=== PATIENT | male | born 1945 | race Caucasian/White ===

== ENCOUNTER → 2018-03-12 | Outpatient (CLI) | payer OTHER, MEDICARE | LOC: ULTRA 07:29 → RAD 11:38 | DX: I10 Essential (primary) hypertension (principal); K44.9 Diaphragmatic hernia without obstruction or gangrene; I65.23 Occlusion and stenosis of bilateral carotid arteries; R13.10 Dysphagia, unspecified; E78.5 Hyperlipidemia, unspecified; K76.0 Fatty (change of) liver, not elsewhere classified; N28.1 Cyst of kidney, acquired; Z86.79 Personal history of other diseases of the circulatory system; Z87.891 Personal history of nicotine dependence; K21.9 Gastro-esophageal reflux disease without esophagitis ==

== ENCOUNTER 2018-05-19 10:31 | Inpatient (IN) | payer OTHER, MEDICARE ==
[~2018-05-19] VITALS: Ht 188 cm; Wt 116.2 kg
[2018-05-19] VITALS (12 sets, daily range): BP systolic 86–118; BP diastolic 58–86
--- NOTE | ~2018-05-19 | EKG ---
[place] [address] [employer] [facility] [place] [address] ELECTROCARDIOGRAM REPORT Name: JOSE A DALAL Room #: 238-P ADM IN M.R.#: [id number] Admission: 05/19/18 Attend Phys: ANA Desir Discharge: Date of : 45 Report #: [id number] THIS REPORT FOR: //name// [facility] Test Date: 2018-05-19 Test Time: 17:21:41 Pat Name: JOSE A DALAL Department: Room: 238 Gender: M Layer Out: JIN : 1945 Requested By: Elkin Cifuentes Order Number: [id number] MD: Andrei Chavez Measurements Intervals [place] Rate: 156 P: [place]: QRS: 29 QRSD: 88 T: -88 QT: 295 QTc: 475 Interpretive Statements Supraventricular tachycardia Nonspecific ST and T wave abnormality No previous ECG available for comparison Electronically Signed On 05-20-2018 8:06:00 CDT by Andrei Chavez [email or web address] <ELECTRONICALLY SIGNED> By: Andrei Chavez MD, FACC 05/20/18 0806 1721 1721 Andrei Chavez MD, FACC /EPI
--- NOTE | ~2018-05-19 | D ---
[facility] [place] [address] DISCHARGE SUMMARY Name: JOSE A DALAL Room #: 206-P [facility] IN M.R.#: [id number] Admission: 05/19/18 Attend Phys: Elkin Cifuentes MD Discharge: 05/25/18 Date of : 45 Report #: [id number] THIS REPORT FOR: //name// CC: Chevy Doyle MD DATE OF SERVICE: 05/25/2018 HOSPITAL COURSE: The patient is admitted with tachycardia, diaphoresis, pallor coughing approximately 2 weeks status post paraesophageal hernia repair at [facility]. The patient was found to have atrial fibrillation with rapid ventricular response and heart rate of 160 beats per minute apically and on chest x-ray, was found to have a moderately large pleural effusion and right lower lobe infiltrate on the same side. He subsequently underwent thoracentesis and this was actually repeated a second time during his hospital stay because of recurrence of fluid. Both times, he produced an benja-colored fluid, the first time 1500 mL, the second time about 1000 mL of fluid removed from his right thorax without complication. The patient felt better. Because of the infiltrates, the patient was started on Zosyn and vancomycin, MRSA tested negative and the patient was eventually converted to oral Augmentin. He tolerated these antibiotics well and felt better with the treatment. He was given nebulizer treatments as well, but these were discontinued when the patient developed significant tachycardia problems with the inhaled beta agonists. At time of discharge, the plan is for the patient to be seen in followup by Pulmonary Medicine in about 6-8 weeks. He will be seen by Cardiology, Dr. Multani, in about a week. I will have him coming to outpatient Radiology to have ultrasound-guided thoracentesis weekly until the fluid clears and if it continues, then consideration will have to be given to pleurodesis. The patient's tachycardia was difficult to treat at first and eventually, he required amiodarone and he was started on a loading dose after intravenous doses at 400 mg twice daily for most of the week. At time of discharge, he is going home on half of that dose and his outpatient management will be further conducted by Dr. Multani. He is unable to take diltiazem because of problems with gingival edema approximately 10-15 years ago. His other rate controlling agent is metoprolol. DISCHARGE MEDICATIONS: As follows: Allopurinol 300 mg daily, Nexium 20 mg [address] [address] DISCHARGE SUMMARY Name: JOSE A DALAL Room #: 206-P DIS IN M.R.#: [id number] Admission: 05/19/18 Attend Phys: Elkin Cifuentes MD Discharge: 05/25/18 Date of : 45 Report #: [id number] mouth daily, simvastatin 40 mg by mouth daily, Augmentin 875 mg by mouth twice daily x 5 days, tamsulosin 0.4 mg by mouth nightly, apixaban 5 mg by mouth twice daily, amiodarone 200 mg by mouth twice daily, metoprolol tartrate 50 mg by mouth twice daily, Robitussin-AC 2 teaspoons by mouth every 4 hours as needed for cough 4 ounces, no refills. The patient has been taken off of the lower dose of metoprolol he was taking at home and off of doxazosin. DISCHARGE DIAGNOSES: As follows: 1. Atrial fibrillation with rapid ventricular response. 2. Right lower lobe pneumonia. 3. Large parapneumonic effusion, exudative, with recurrence. 4. Hypertension. 5. Prostatism. 6. Gastroesophageal reflux disease, status post very recent paraesophageal herniorrhaphy. 7. History of gout. 8. History of hyperlipidemia. 9. Chronic kidney disease, stage 2. I have given the patient information about the medications he will be taking, about the followup visits he will be making with Cardiology and Pulmonary Medicine as well as myself and in the outpatient Radiology Department. He was given information to read about what is pleurodesis, in case it is ultimately used to treat his recurrent pleural effusions. It is worth noting that the patient's pleural fluid was tested extensively and the cytology was negative and the bacteriology was negative and at the time of this discharge, I feel that because of the effusion, it is multifactorial including the apparent pneumonia and the fact of his recent paraesophageal hernia repair and trauma locally to the pleura. 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 <ELECTRONICALLY SIGNED> By: Elkin Cifuentes MD 05/28/18 1042 1015 1115 Elkin Cifuentes MD /nt
--- NOTE | ~2018-05-19 | 2DMMODE ---
[facility] [address] [place] [address] 2 D/M-MODE ECHOCARDIOGRAM Name: JOSE A DALAL Room #: 238-P ADM IN M.R.#: [id number] Admission: 05/19/18 Attend Phys: Lindy Pablo, Discharge: Date of : 45 Date of Service: 05/20/18 1144 Report #: [id number] THIS REPORT FOR: //name// APPROVED REPORT Study performed: 05/20/2018 10:08:24 EXAM: Comprehensive 2D, Doppler, and color-flow Echocardiogram Patient Location: ICU Room #: 238 Status: routine BSA: 2.43 HR: 112 bpm BP: 114/63 mmHg Other Information Study Quality: Technically Difficult Technically limited study due to body habitus, high heart rate. Indications Hypertension/HDD SOB 2D Dimensions RVDd: 32.41 mm IVSd: 13.99 (7-11mm) LVOT Diam: 23.41 (18-24mm) LVDd: 41.24 mm PWd: 14.69 (7-11mm) Ascending Ao: 32.18 (22-36mm) LVDs: 25.71 (25-40mm) Aortic Root: 32.40 mm IVC: 15.00 mm Volumes Left Atrial Volume (Systole) Single Plane 4CH: 39.00 mL Single Plane 2CH: 56.93 mL LA ESV Index: 22.00 mL/m2 Aortic Valve AoV Peak Prasanna.: 0.92 m/s AO Peak Gr.: 3.36 mmHg LVOT Max P.06 mmHg LVOT Max V: 0.71 m/s ASHKAN Vmax: 3.34 cm2 Mitral Valve MV Decel. Time: 166.[address] [facility] [place] [place] [address] 2 D/M-MODE ECHOCARDIOGRAM Name: JOSE A DALAL Room #: 238-P ADM IN ..#: [id number] Admission: 05/19/18 Attend Phys: Lindy Pablo, Discharge: Date of : 45 Date of Service: 05/20/18 1144 Report #: [id number] MV E Max Prasanna.: 0.98 m/s Pulmonary Valve PV Peak Prasanna.: 1.06 m/s PV Peak Gr.: 4.52 mmHg Tricuspid Valve RAP Estimate: 10.00 mmHg Left Ventricle The left ventricle is normal size. Mild to moderate concentric left ventricular hypertrophy. Left ventricular systolic function is mildly decreased. LVEF is 45-50%. This study is not technically sufficient to allow evaluation of the LV diastolic function. Right Ventricle The right ventricle is normal size. Right ventricle is mildly hypokinetic. Atria The left atrium size is normal. The right atrium size is normal. Aortic Valve Aortic valve is mildly calcified. Trace aortic regurgitation. There is no aortic valvular stenosis. Mitral Valve Mild mitral annular calcification. Mild mitral regurgitation. No evidence of mitral valve stenosis. Tricuspid Valve The tricuspid valve is normal in structure. Trace tricuspid regurgitation. Pulmonic Valve Pulmonic valve is not well visualized. Great Vessels The aortic root is normal in size. IVC is normal in size and collapses <50% with inspiration. Pericardium There is no pericardial effusion. <Conclusion> The left ventricle is normal size. [facility] [address] [place] [address] 2 D/M-MODE ECHOCARDIOGRAM Name: JOSE A DALAL Room #: 238-P [facility] IN .R.#: [id number] Admission: 05/19/18 Attend Phys: Lindy Pablo, Discharge: Date of : 45 Date of Service: 05/20/18 1144 Report #: [id number] LVEF is 45-50%. Right ventricle is mildly hypokinetic. Aortic valve is mildly calcified. Trace aortic regurgitation. Mild mitral annular calcification. Mild mitral regurgitation. The tricuspid valve is normal in structure. Trace tricuspid regurgitation. Pulmonic valve is not well visualized. There is no pericardial effusion. <ELECTRONICALLY SIGNED> By: Chevy Multani MD 05/20/18 1144 1144 1144 Chevy Multani MD /INF
--- NOTE | ~2018-05-19 | PATH ---
[facility] [address] [place] [address] PATHOLOGY RPT PROCEDURE Name: JOSE A DALAL Room #: 206-P DIS IN M.R.#: [id number] Admission: 05/19/18 Date of : 45 Discharge: 05/25/18 Report #: [id number] Path Case #: [id number] Note [facility] Accession Number: [id number] TESTS RESULT FLAG UNITS REF RANGE LAB Clinician Provided Cytology Information No. of containers..01 Other (Miscellaneous) Source: PLEURAL FLUID DIAGNOSIS: 02 PLEURAL FLUID NEGATIVE FOR MALIGNANT CELLS. REACTIVE MESOTHELIAL CELLS ARE PRESENT. THIS INTERPRETATION INCLUDES EVALUATION OF A CELL BLOCK. Signed out by: 02 Radha Carter MD, Pathologist NPI- [id number] Performed by: 01 Yeimy Fang, Interpreter ([facility]) Gross description: 01 15ML, RED, CLOUDY /LCS FLAG LEGEND: L-Low Normal,H-High Normal,LL-Alert Low,HH-Alert High <-Panic Low,>-Panic High,A-Abnormal,AA-Critical Abnormal Performed at: [address] [place] [address] Arash Zuluaga MD, [address] [address] Radha Carter MD, Specimen Comment: A duplicate report has been generated due to demographic updates. Performed at: [address], [place], [place] [id number] MD Arash Zuluaga MD Phone: [phone]
--- NOTE | ~2018-05-19 | PATH ---
[facility] [address] [place] [address] PATHOLOGY RPT PROCEDURE Name: JOSE A DALAL Room #: 206-P DIS IN M.R.#: [id number] Admission: 05/19/18 Date of : 45 Discharge: 05/25/18 Report #: [id number] Path Case #: [id number] Note [facility] Accession Number: [id number] TESTS RESULT FLAG UNITS REF RANGE LAB Clinician Provided Cytology Information No. of containers..01 Other (Miscellaneous) Source: PLEURAL DIAGNOSIS: 02 PLEURAL FLUID NEGATIVE FOR MALIGNANT CELLS. MESOTHELIAL CELLS ARE PRESENT. THIS INTERPRETATION INCLUDES EVALUATION OF A CELL BLOCK. Signed out by: Radha Carter MD, Pathologist NPI- [id number] Performed by: Alexey Girard, Biod[employer]el Plant Superintendent ([facility]) Gross description: 01 18ML, RED, CLOUDY /LCS FLAG LEGEND: L-Low Normal,H-High Normal,LL-Alert Low,HH-Alert High <-Panic Low,>-Panic High,A-Abnormal,AA-Critical Abnormal Performed at: [address] [place] [address] Arash Zuluaga MD, [address] [address] Radha Carter MD, Specimen Comment: A courtesy copy of this report has been sent to Specimen Comment: [phone]. Specimen Comment: A duplicate report has been generated due to demographic updates. Performed at: [address], [place], [place] [id number] MD Arash Zuluaga MD Phone: [phone]
--- NOTE | ~2018-05-19 | HC ---
[facility] [place] [address] CONSULTATION Name: JOSE A DALAL Room #: 238-P ADM IN M.R.#: [id number] Admission: 05/19/18 Attend Phys: Elkin Cifuentes MD Discharge: Date of : 45 Report #: [id number] THIS REPORT FOR: //name// CC: Elkin Pablo Pulmonary Consultation REFERRAL PHYSICIAN: Dr. Elkin Cifuentes. REASON FOR REFERRAL: Dyspnea and pleural effusion. HISTORY OF PRESENT ILLNESS: The patient is a 72-year-old white male who was directly admitted due to presumed sepsis. A pulmonary consultation was requested. The patient underwent a surgical repair of his paraesophageal hernia about 2 weeks ago at [facility]. He is doing well following surgery. The patient notes that for the past day or so, he was feeling short of breath. He was seen by Dr. Flores, his surgeon. Chest x-ray showed moderate right-sided pleural effusion. He was admitted. He was also found to be tachycardic. The patient then had a thoracentesis. Pleural fluid appears to be bloody, but not max blood. The patient did improve following his thoracentesis. Otherwise denies any recent febrile illness, chest pain, productive cough, hemoptysis, nausea, vomiting, diarrhea. PAST MEDICAL HISTORY: Notable for hypertension, felt to be severe, on multiple antihypertensive medications, recurrent gout, osteoarthritis, gastroesophageal reflux disease, paraesophageal hernia, aortic dilatation. PAST SURGICAL HISTORY: As mentioned above. ALLERGIES: None to medications. The patient is intolerant to the use of MICKEY INHIBITORS, which cause cough. HOME MEDICATIONS: List reviewed. FAMILY HISTORY: Notable for ruptured abdominal aortic aneurysm in the father who . Mother has COPD. SOCIAL HISTORY: He is . He is a lifetime nonsmoker. Denies any alcohol use. REVIEW OF SYSTEMS: As mentioned above, otherwise 10-point system review negative. [facility] [address] [place] [address] CONSULTATION Name: JOSE A DALAL Room #: 238-P [facility] IN .R.#: [id number] Admission: 05/19/18 Attend Phys: Elkin Cifuentes MD Discharge: Date of : 45 Report #: [id number] PHYSICAL EXAMINATION: GENERAL: He is alert, awake, in mild distress. VITAL SIGNS: Temperature is 98 degrees Fahrenheit, pulse is 110, respiratory rate is 20, blood pressure 100/40 mmHg, saturation 97%. HEENT: Unremarkable. NECK: Supple, no lymphadenopathy or thyromegaly. CHEST: Breath sounds are good on the left side. There are decreased breath sound on the right. CARDIOVASCULAR: Normal S1, S2. No murmurs or gallop. There is no JVD. There is no carotid bruit. Pulses are 2+/4+ bilaterally. ABDOMEN: Soft, nontender, no organomegaly or masses felt. GENITOURINARY: Deferred. RECTAL: Deferred. EXTREMITIES: There is no edema, cyanosis or clubbing. DATA: Chest x-ray shows large right pleural effusion. Procalcitonin levels are less than 0.5. Doppler ultrasound of the lower extremities was negative for DVT. Electrolytes are normal except for creatinine of 1.7. WBC 9900, hemoglobin 13.8, platelets are normal. Arterial blood gas revealed pH 7.45, pCO2 of 33, pO2 66 on room air. IMPRESSION: 1. Large right-sided pleural effusion in this 72-year-old white male. He recently underwent paraesophageal surgery 2 weeks ago. The pleural fluid appears to be old blood. Pleural fluid may be related to surgical procedure or possible infection leading to exudative effusion. We will await pleural fluid studies. 2. Paraesophageal hernia, status post repair 2 weeks ago. 3. Gastroesophageal reflux disease. 4. Hypertension. RECOMMENDATION: We will await pleural fluid studies. Broad spectrum antibiotics. Agree with ruling out veno-thromboembolic disease. CT chest to further examine the right lung field. DVT and GI prophylaxis is recommended. [address] [address] CONSULTATION Name: JOSE A DALAL Room #: 238-P [facility] IN .R.#: [id number] Admission: 05/19/18 Attend Phys: Elkin Cifuentes MD Discharge: Date of : 45 Report #: [id number] Thank you for this consultation. <ELECTRONICALLY SIGNED> By: Akhil Doyle MD 05/21/18 1906 [id number] MD nikhil Olivera
--- NOTE | ~2018-05-19 | H ---
[facility] [place] [address] HISTORY AND PHYSICAL Name: JOSE A DALAL Room #: 238-P ADM IN M.R.#: [id number] Admission: 05/19/18 Attend Phys: ANA Desir Discharge: Date of : 45 Report #: [id number] THIS REPORT FOR: //name// CC: [facility] Elkin Angles Steven Doyle MD DATE OF SERVICE: 05/19/2018 CHIEF COMPLAINT: Shortness of breath. HISTORY OF PRESENT ILLNESS: The patient is a 72-year-old male who was discovered to have had a paraesophageal hernia that required surgical repair and this was performed about 2 weeks ago at [facility] under the care of Dr. Steven Flores. The patient was to had LINX procedure done at the same time, but because of the incidental finding of a gastric diverticulum, which needed to be resected at the time of surgery, the LINX was precluded. The patient has been home about 10 days and has pretty much been in bed the entire time. He could not state a particular moment at which he began feeling ill, but rather just never got better as much as he would like after surgery. He feels short of breath when he exerts himself, and I received a phone call from Dr. Flores's office when he was seen at followup today. At the time it was felt that he might have pneumonia on clinical suspicion. When I saw him later in my office, we reviewed his chest x-ray that revealed a right-sided basilar infiltrate as well as a substantial pleural effusion. Most suspicious on physical exam, his heart rate was 160 beats per minute. I arranged for him to be admitted to a telemetry bed at [facility] for further evaluation and treatment. 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 ALLERGIES: HE HAS NO KNOWN DRUG ALLERGIES, BUT DOES NOT TOLERATE MICKEY INHIBITORS (PERSISTENT COUGH). HE ALSO DID NOT TOLERATE ANGIOTENSIN RECEPTOR KAREY THERAPY AND FOR THAT REASON ONE OF HIS DRUGS IS TEKTURNA. MEDICATIONS: Kfxg-tmt-nhgpzes omeprazole, Tekturna 300 mg by mouth daily, metoprolol 100 mg by mouth daily, doxazosin 8 mg by mouth nightly, simvastatin 80 mg by mouth daily, aspirin 81 mg by mouth daily, allopurinol 300 mg by mouth daily, Colcrys on a p.r.n. basis and up until a few days ago he was using hydrocodone for postop pain. [facility] [address] [place] [address] HISTORY AND PHYSICAL Name: JOSE A DALAL Room #: 238-P ADM IN M.R.#: [id number] Admission: 05/19/18 Attend Phys: ANA Desir Discharge: Date of : 45 Report #: [id number] FAMILY HISTORY: His father of a ruptured abdominal aortic aneurysm. His mother also had an aneurysm, but did not of that. She had COPD from smoking in the remote past and heart disease and stroke, I believe. SOCIAL HISTORY: The patient is to [employer]as[employer]. He is a nonsmoker and does not abuse alcohol or recreational drugs. REVIEW OF SYSTEMS: No headaches, no change in vision or hearing or swallowing. No vomiting, minimal loss of appetite, coarseness of breathing and cough. He is minimally productive of sputum. No chest pain. Abdomen wounds are healing, but small as they are laparoscopic and although constipated, his bowels have begun moving better in the last couple of days. No diarrhea, otherwise. No difficulties with urination or urinary frequency. No recent flare ups of gout. No problems with confusion. 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 PHYSICAL EXAMINATION: VITAL SIGNS: At my office, his temperature was 98.3, his pulse was 160, his respiratory rate was 16 per minute, his blood pressure was 140/90 and his oxygen saturation was 97% on room air. GENERAL: Pleasant male who looks younger than stated age, but clearly has increased pallor and slightly diaphoretic today. No distress at time of exam other than just not feeling well. HEENT: The extraocular muscles are intact. The conjunctivae are slightly pale as is the oropharynx. The oropharynx is moist and pink without lesions or exudates, otherwise. Sinuses nontender. Hearing is grossly normal. NECK: Without adenopathy, thyromegaly, mass or significant bruit. LUNGS: Fairly clear on the left side with clearly greatly diminished breath sounds in the right base about third of the way up (confirmed on chest x-ray). CARDIAC: Reveals a tachycardia that is regular. ABDOMEN: Soft. Bowel sounds are present. Laparoscopic wounds noted x 5. They all appear to be healing normally. There is no evidence of infection or any signs of cellulitis. No significant discharge. EXTREMITIES: Without cyanosis or clubbing. Trace peripheral edema in lower extremities, but peripheral pulses are good and no evidence of gout flareups. MENTAL STATUS: The patient is alert. He is oriented to person, place and time. He has no hallucinations or delusions and merely appears tired and affect is slightly down from his usual ebullient self. The cranial nerves appeared intact. Gait was fairly normal. The deep tendon reflexes were not assessed today. No focal deficits of sensation or motor function on general exam. TESTS: The chest x-ray showed clearly a right basilar infiltrate with a large effusion. Left side appears fairly normal. Mediastinal size is normal. The EKG, I have not seen, but the unofficial report is rapid atrial fibrillation, probable inferior infarct and says lateral leads also involved and this will [facility] [address] [place] [address] HISTORY AND PHYSICAL Name: JOSE A DALAL Room #: 238-P ADM IN .R.#: [id number] Admission: 05/19/18 Attend Phys: ANA Desir Discharge: Date of : 45 Report #: [id number] require further investigation. Coags show a protime with an INR of 1.3, PTT of 26.1, which is normal. INR slightly elevated. CBC shows a white count of 9900. Differential 79.9% segs, 11.1% lymphs, 6.6% monocytes, 1.9% eosinophils, 0.5% basophils and the absolute neutrophil count of 7900. Hemoglobin is just barely low at 13.8 g/dL, hematocrit 41.6, normal red cell indices with rising RDW and platelet count of 372,000. D-dimer was elevated at 3.61, which in the absence of being normal does not help delineate much since he had surgery recently. Chemistry shows sodium 140, potassium 4.9, chloride 105, bicarbonate 29, BUN of 21, creatinine 1.7, anion gap 6, glucose 101 nonfasting, AST of 17, ALT of 25. The total bilirubin is 0.5, calcium is 8.9, total protein 6.3, albumin 2.5 and the estimated GFR is low at 40. Serum procalcitonin was less than 0.05. His NT-proBNP is elevated at 5012, with normal for a man his age being less than 900. Troponin was 0.06, which is barely elevated. Thoracentesis was performed at the request of Dr. Doyle and this revealed 1500 mL of benja-colored pleural fluid that was drained without difficulty or evident complication. The pleural fluid was sent for evaluation. The preliminaries show a red blood cell count was 74,335 and the nucleated cells were 2410, but the rest is pending and cultures have been ordered and obtained. ASSESSMENT AND PLAN: 1. Large right pleural effusion with infiltrate -- differential diagnosis includes infection (pneumonia versus empyema), pulmonary embolism (sedentary lifestyle postoperatively), or simply postoperative bleeding in the pleural space on the right side. The patient also has elevated brain natriuretic peptide and this suggests there may be a component of congestive heart failure going on, especially in light of problem #2. 2. Atrial fibrillation with rapid ventricular response. We need to redo the EKG, but given this finding it is likely that he may have to be transferred to ICU for closer monitoring and starting a Cardizem drip in the setting of a possible pulmonary embolism or pneumonia. I will discuss with the patient and his and make the arrangements this evening. I have already discussed the case at some length with Dr. Doyle and will be getting a Cardiology consult as well. Atrial fibrillation is a new finding for this patient. 3. Approximately 10 days status post paraesophageal hernia repair and gastric diverticulectomy. We will continue on a very restricted diet as per my conversation with Dr. Steven Flores earlier this evening. I welcome Dr. Flores's input throughout the case and will place a formal consult if he would like for followup of this patient. 4. Hypertension. We will continue current medications, but started Coreg instead of the metoprolol for rate and blood pressure control. I will defer to my Cardiovascular colleagues if they feel differently. For now, I would likely put him on an intravenous diltiazem drip to get rate control quickly. He will need full anticoagulation for now. Further considerations regarding a need for electrical cardioversion or not in the future, we will defer to Cardiology. [facility] [address] [place] [address] HISTORY AND PHYSICAL Name: JOSE A DALAL Room #: 238-P ADM IN M.R.#: [id number] Admission: 05/19/18 Attend Phys: ANA Desir Discharge: Date of : 45 Report #: [id number] 5. Gastroesophageal reflux disease. Continue proton pump inhibitor therapy. 6. History of recurrent gout. No evidence of disease at this time. We will continue to monitor and keep him on medications to try and prevent recurrences. 7. Hyperlipidemia. Continue on statin therapy. <ELECTRONICALLY SIGNED> By: Elkin Cifuentes MD 05/19/18 2154 1755 1839 Elkin Cifuentes MD /nt
--- NOTE | ~2018-05-19 | EKG ---
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
[2018-05-19 15:58] LABS: ABSOLUTE NEUTROPHILS 7.9 thou/uL (1.4-8.2); BASOPHILS 0.5 % (0.0-2.0); EOSINOPHILS 1.9 % (0.0-3.0); HEMATOCRIT 41.6 % (42.0-52.0); HEMOGLOBIN 13.8 gm/dL (14.0-18.0); LYMPHOCYTES 11.1 % (24.0-44.0); MCH 30.8 pg (26.0-34.0); MCHC 33.2 g/dL (28.0-37.0); MCV 92.8 fL (80.0-100.0); MONOCYTES 6.6 % (1.0-8.0); PLATELET COUNT 372 thou/uL (150-400); POLYS 79.9 % (36.0-66.0); RBC 4.49 mil/uL (4.50-6.00); RDW 14.9 % (10.5-14.5); WBC 9.9 thou/uL (4.0-11.0)
[2018-05-19 16:01] LABS: APTT 26.1 Seconds (24.5-32.8); INR 1.3; PROTIME 12.9 Seconds (9.3-11.4)
[2018-05-19 16:04] LABS: CALCIUM 8.9 mg/dL (8.5-10.1); CREATININE 1.7 mg/dL (0.7-1.3); POTASSIUM 4.9 mmol/L (3.5-5.1)
[2018-05-19 16:10] LABS: ALBUMIN 2.5 g/dL (3.4-5.0); DIRECT BILIRUBIN 0.2 mg/dL (<0.1-0.3); TOTAL BILIRUBIN 0.5 mg/dL (<0.1-1.0); TOTAL PROTEIN 6.3 g/dL (6.4-8.2)
[2018-05-19 17:11] LABS: CLARITY CLOUDY; COLOR RED; SOURCE RIGHT CHEST; TOTAL VOLUME 50 mL
[2018-05-19 17:28] LABS: BF NUCLEATED CELLS 2410; BF RBC 74335
[2018-05-19 17:46] LABS: BE(vivo) -0.6 mmol/L (-2 to +3); HCO3 22.6 mmol/L (22.0-26.0); PCO2 33.3 mmHg (35.0-45.0); PO2 66.8 mmHg (80.0-100.0); sO2 94.3 % (92.0-98.0)
[2018-05-19 18:17] LABS: BF NEUTROPHILS 7
[2018-05-19 18:18] LABS: BF MACROPHAGE 20
[2018-05-19 19:10] LABS: HEMATOCRIT 41.9 % (42.0-52.0); MCHC 33.3 g/dL (28.0-37.0); RBC 4.5 mil/uL (4.50-6.00); RDW 14.7 % (10.5-14.5); WBC 10.5 thou/uL (4.0-11.0)
[2018-05-19] MEDS ORDERED: KAPSPARGO SPRIN25 MG PO (19:45)
[2018-05-19] MEDS ORDERED: TEKTURNA HCT 31 EACH PO (19:45)
[2018-05-19] MEDS ORDERED: ALLOPURINOL 10100 M1 PO (19:46)
[2018-05-19] MEDS ORDERED: NEXIUM 24HR20 M1 PO (19:47)
[2018-05-19] MEDS ORDERED: NORCO 10-325 T1 EACH PO (19:48)
[2018-05-19] MEDS ORDERED: CARDURA4 MG PO (20:34)
[2018-05-19] MEDS ORDERED: SIMVASTATIN40 MG PO (20:35)
[2018-05-20] VITALS (51 sets, daily range): BP systolic 66–124; BP diastolic 27–74
[2018-05-20 03:56] LABS: CALCIUM 8.2 mg/dL (8.5-10.1); CREATININE 1.4 mg/dL (0.7-1.3); POTASSIUM 4.3 mmol/L (3.5-5.1)
[2018-05-20 04:02] LABS: APTT 31.9 Seconds (24.5-32.8); INR 1.3; PROTIME 12.8 Seconds (9.3-11.4)
[2018-05-20 09:04] LABS: SOURCE THORACENTESIS
[2018-05-20 11:30] LABS: INR 1.4; PROTIME 13.9 Seconds (9.3-11.4)
[2018-05-20 11:35] LABS: APTT > 198.4 Seconds (24.5-32.8)
[2018-05-20 15:08] LABS: BODY FLUID ALBUMIN 1.7 g/dL (()); BODY FLUID AMYLASE 21 U/L (()); BODY FLUID GLUCOSE 97 mg/dL (()); BODY FLUID LDH 249 IU/L (())
[2018-05-21] VITALS (37 sets, daily range): BP systolic 70–113; BP diastolic 27–71
[2018-05-21 04:49] LABS: HEMATOCRIT 36.4 % (42.0-52.0); HEMOGLOBIN 12.2 gm/dL (14.0-18.0); MCH 31.1 pg (26.0-34.0); MCHC 33.4 g/dL (28.0-37.0); RBC 3.92 mil/uL (4.50-6.00); RDW 14.7 % (10.5-14.5); WBC 8.4 thou/uL (4.0-11.0)
[2018-05-21 05:03] LABS: CREATININE 1.4 mg/dL (0.7-1.3); DIGOXIN 1.4 ng/mL (0.9-2.0); POTASSIUM 4.5 mmol/L (3.5-5.1)
[2018-05-22] VITALS (18 sets, daily range): BP systolic 80–122; BP diastolic 43–83
[2018-05-22 05:36] LABS: HEMATOCRIT 35.7 % (42.0-52.0); HEMOGLOBIN 12.1 gm/dL (14.0-18.0); MCH 31.4 pg (26.0-34.0); MCHC 33.9 g/dL (28.0-37.0); MCV 92.7 fL (80.0-100.0); RBC 3.85 mil/uL (4.50-6.00); RDW 14.7 % (10.5-14.5); WBC 8.5 thou/uL (4.0-11.0)
[2018-05-22 05:48] LABS: CALCIUM 8.2 mg/dL (8.5-10.1); CREATININE 1.5 mg/dL (0.7-1.3); POTASSIUM 4.1 mmol/L (3.5-5.1)
[2018-05-22 14:28] LABS: CLARITY CLOUDY; COLOR RED; SOURCE RT CHEST; TOTAL VOLUME 63 mL
[2018-05-22 14:44] LABS: BF NUCLEATED CELLS 4689; BF RBC 22861
[2018-05-22 16:23] LABS: BF MACROPHAGE 4; BF NEUTROPHILS 64
[2018-05-23 03:34] VITALS: BP 114/56
[2018-05-23 05:01] LABS: HEMATOCRIT 35.7 % (42.0-52.0); HEMOGLOBIN 12.3 gm/dL (14.0-18.0); MCH 31.4 pg (26.0-34.0); MCHC 34.4 g/dL (28.0-37.0); RBC 3.92 mil/uL (4.50-6.00); WBC 7.3 thou/uL (4.0-11.0)
[2018-05-23 05:10] LABS: CALCIUM 8.4 mg/dL (8.5-10.1); CREATININE 1.3 mg/dL (0.7-1.3); POTASSIUM 3.9 mmol/L (3.5-5.1)
[2018-05-23 07:32] VITALS: BP 125/67
[2018-05-23 10:06] LABS: BODY FLUID ALBUMIN 1.8 g/dL (()); BODY FLUID AMYLASE 15 U/L (()); BODY FLUID GLUCOSE 94 mg/dL (()); BODY FLUID LDH 381 IU/L (()); BODY FLUID PROTEIN 2.7 g/dL (())
[2018-05-23 10:43] VITALS: BP 111/62
[2018-05-23 15:11] VITALS: BP 126/72
[2018-05-24 04:20] LABS: CALCIUM 8.6 mg/dL (8.5-10.1); CREATININE 1.4 mg/dL (0.7-1.3); POTASSIUM 3.8 mmol/L (3.5-5.1)
[2018-05-24 04:23] LABS: HEMOGLOBIN 12.5 gm/dL (14.0-18.0); MCH 31.2 pg (26.0-34.0); MCHC 33.9 g/dL (28.0-37.0); RBC 4.02 mil/uL (4.50-6.00); RDW 14.8 % (10.5-14.5); WBC 6.9 thou/uL (4.0-11.0)
[2018-05-24 04:38] VITALS: BP 105/52
[2018-05-24 07:39] VITALS: BP 112/63
[2018-05-24 09:54] LABS: SOURCE THORACENTESIS
[2018-05-24 10:07] VITALS: BP 118/61
[2018-05-24 15:55] VITALS: BP 102/62
[2018-05-24 20:45] VITALS: BP 105/57
[2018-05-24] MEDS ORDERED: LOPRESSOR50 PO (21:27)
[2018-05-24] MEDS ORDERED: GUAIFEN-CODEINE10 ML PO (21:27)
[2018-05-24] MEDS ORDERED: PACERONE 200 M200 M1 PO (21:27)
[2018-05-24] MEDS ORDERED: FLOMAX0.4 MG PO (21:27)
[2018-05-24] MEDS ORDERED: ELIQUIS5 MG PO (21:27)
[2018-05-24] MEDS ORDERED: AUGMENTIN 875-1 EACH PO (21:27)
[2018-05-25 04:00] VITALS: BP 100/65
[2018-05-25 07:33] VITALS: BP 114/59
[2018-05-25 10:44] VITALS: BP 114/59
[2018-05-25 10:56] LABS: HEMATOCRIT 37.6 % (42.0-52.0); HEMOGLOBIN 12.5 gm/dL (14.0-18.0); MCH 30.8 pg (26.0-34.0); MCHC 33.2 g/dL (28.0-37.0); MCV 92.8 fL (80.0-100.0); RBC 4.05 mil/uL (4.50-6.00); RDW 14.7 % (10.5-14.5); WBC 6.7 thou/uL (4.0-11.0)
== END 2018-05-25 11:24 | disposition home or self-care (01) | DRG 193 ==
LOC: RAD 10:31 → ICU 12:27 → 3W 12:27 → ICU 18:57 → 2N 05-22 15:42 → ENTRNSPT 05-25 11:15 → 2N 05-25 11:24
PROVIDERS: Internal Medicine; Internal Medicine Pulmonary Disease
PROC: 0W993ZZ Drainage of Right Pleural Cavity, Percutaneous Approach (ICD-10-PCS; principal; 2018-05-19)
PROC: 02HV33Z Insertion of Infusion Device into Superior Vena Cava, Percutaneous Approach (ICD-10-PCS; 2018-05-20)
PROC: 0W993ZZ Drainage of Right Pleural Cavity, Percutaneous Approach (ICD-10-PCS; 2018-05-22)
DX: J18.1 Lobar pneumonia, unspecified organism (principal); R65.11 Systemic inflammatory response syndrome (SIRS) of non-infectious origin with acute organ dysfunction; J90 Pleural effusion, not elsewhere classified; I42.9 Cardiomyopathy, unspecified; I48.91 Unspecified atrial fibrillation; M19.90 Unspecified osteoarthritis, unspecified site; K21.9 Gastro-esophageal reflux disease without esophagitis; E78.5 Hyperlipidemia, unspecified; N18.2 Chronic kidney disease, stage 2 (mild); M10.9 Gout, unspecified; I12.9 Hypertensive chronic kidney disease with stage 1 through stage 4 chronic kidney disease, or unspecified chronic kidney disease; N40.0 Benign prostatic hyperplasia without lower urinary tract symptoms; Z83.6 Family history of other diseases of the respiratory system
CPT/HCPCS: 10204; 10797; 27000

== ENCOUNTER → 2018-06-04 | Outpatient (CLI) | payer OTHER, MEDICARE ==
[~2018-06-04] MED LIST: ALLOPURINOL 10100 M1 PO; AUGMENTIN 875-1 EACH PO; CARDURA4 MG PO; ELIQUIS5 MG PO; FLOMAX0.4 MG PO; GUAIFEN-CODEINE10 ML PO; KAPSPARGO SPRIN25 MG PO; LOPRESSOR50 PO; NEXIUM 24HR20 M1 PO; NORCO 10-325 T1 EACH PO; PACERONE 200 M200 M1 PO; SIMVASTATIN40 MG PO; TEKTURNA HCT 31 EACH PO
[2018-06-04 09:10] LABS: INR 1.2; PROTIME 11.9 Seconds (9.3-11.4)
[2018-06-04 14:18] LABS: CLARITY TURBID; COLOR BROWN; SOURCE RIGHT CHEST; TOTAL VOLUME 60 mL
[2018-06-04 14:24] LABS: SOURCE RIGHT CHEST
[2018-06-04 14:34] LABS: BF NUCLEATED CELLS 1461; BF RBC 10813
[2018-06-04 15:51] LABS: BF NEUTROPHILS 3
[2018-06-04 15:52] LABS: BF MACROPHAGE 11
[2018-06-05 22:07] LABS: BODY FLUID ALBUMIN 2.2 g/dL (()); BODY FLUID AMYLASE 10 U/L (()); BODY FLUID GLUCOSE 106 mg/dL (()); BODY FLUID LDH 210 IU/L (()); BODY FLUID PROTEIN 3.3 g/dL (())
== END | disposition home or self-care (01) ==
LOC: ULTRA 08:43
PROVIDERS: Internal Medicine
DX: J90 Pleural effusion, not elsewhere classified (principal); R06.02 Shortness of breath; I10 Essential (primary) hypertension; M19.90 Unspecified osteoarthritis, unspecified site; I48.91 Unspecified atrial fibrillation; M10.9 Gout, unspecified; K21.9 Gastro-esophageal reflux disease without esophagitis; Z79.82 Long term (current) use of aspirin; Z88.8 Allergy status to other drugs, medicaments and biological substances; Z79.899 Other long term (current) drug therapy; Z79.01 Long term (current) use of anticoagulants; Z98.890 Other specified postprocedural states

== ENCOUNTER → 2018-06-11 | Outpatient (CLI) | payer OTHER, MEDICARE ==
--- NOTE | ~2018-06-11 | PATH ---
[facility] [address] [place] [address] PATHOLOGY RPT PROCEDURE Name: JOSE A DALAL Room #: REG HENRIK M.R.#: [id number] Admission: 06/11/18 Date of : 45 Discharge: Report #: [id number] Path Case #: [id number] Note [facility] Accession Number: [id number] TESTS RESULT FLAG UNITS REF RANGE LAB Clinician Provided Cytology Information No. of containers..01 Other (Miscellaneous) Source: RT PLEURAL FLUID DIAGNOSIS: 02 RT PLEURAL FLUID NEGATIVE FOR MALIGNANT CELLS. MESOTHELIAL CELLS ARE PRESENT. THIS INTERPRETATION INCLUDES EVALUATION OF A CELL BLOCK. Signed out by: 02 Asad Wood MD, Pathologist NPI- [id number] Performed by: 01 Rhina Stanton, Time Clerk ([facility]) Gross description: 01 10ML, RED, CLOUDY /LCS FLAG LEGEND: L-Low Normal,H-High Normal,LL-Alert Low,HH-Alert High <-Panic Low,>-Panic High,A-Abnormal,AA-Critical Abnormal Performed at: [address] [place] [address] Arash Zuluaga MD, [address] [address] Radha Carter MD, Specimen Comment: A courtesy copy of this report has been sent to Specimen Comment: [phone]. Specimen Comment: Report sent to Performed at: [address], [place], [place] [id number] MD Arash Zuluaga MD Phone: [phone]
[2018-06-11 08:12] LABS: CLARITY CLOUDY; COLOR RED; SOURCE CHEST FLUID; TOTAL VOLUME 60 mL
[2018-06-11 08:29] LABS: SOURCE THORACENTESIS
[2018-06-11 09:18] LABS: BF NUCLEATED CELLS 3146; BF RBC 27653
[2018-06-11 09:46] LABS: BF MACROPHAGE 12; BF NEUTROPHILS 0
[2018-06-13 02:05] LABS: BODY FLUID ALBUMIN 2.2 g/dL (()); BODY FLUID AMYLASE 8 U/L (()); BODY FLUID GLUCOSE 97 mg/dL (()); BODY FLUID LDH 291 IU/L (()); BODY FLUID PROTEIN 3.7 g/dL (())
== END | disposition home or self-care (01) ==
LOC: ULTRA 07:18
PROVIDERS: Internal Medicine
DX: J90 Pleural effusion, not elsewhere classified (principal); J18.9 Pneumonia, unspecified organism; I48.91 Unspecified atrial fibrillation; Z88.8 Allergy status to other drugs, medicaments and biological substances; Z79.899 Other long term (current) drug therapy; Z79.01 Long term (current) use of anticoagulants

== ENCOUNTER → 2018-06-18 | Outpatient (CLI) | payer OTHER, MEDICARE | LOC: ULTRA 08:07 | DX: J91.8 Pleural effusion in other conditions classified elsewhere (principal) ==

== ENCOUNTER → 2018-07-02 | Outpatient (CLI) | payer OTHER, MEDICARE ==
[~2018-07-02] VITALS: Ht 188 cm; Wt 106.6 kg
--- NOTE | ~2018-07-02 | CATHLAB ---
[facility] [address] [place] [address] INVASIVE PROCEDURE REPORT Name: JOSE A DALAL Room #: REG [facility]#: [id number] Admission: 07/02/18 Attend Phys: Chevy Mack Discharge: Date of : 45 Date of Service: 07/02/18 1256 Report #: [id number] THIS REPORT FOR: //name// CC: Chevy Cifuentes DATE OF SERVICE: 07/02/2018 INDICATION FOR PROCEDURE: A 72-year-old male patient with symptomatic atrial fibrillation. PROCEDURE: 1. Electrical cardioversion. 2. Supervision of conscious sedation. 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 BRIEF DESCRIPTION OF PROCEDURE: After informed consent was obtained, the patient was brought to the cardiac catheterization laboratory, prep and hold. He was sedated with the above sedation after AP patches were placed. Utilizing a synchronized mode, biphasic shock at 200 joules was performed, which converted the patient to sinus bradycardia. He was allowed to recover and was reversed without complications. He tolerated the procedure well. <ELECTRONICALLY SIGNED> By: Chevy Multani MD 07/28/18 0240 1256 1310 Chevy Multani MD /nt
--- NOTE | ~2018-07-02 | EKG ---
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 : 1945 Requested By: Chevy Multani Order Number: [id number] MD: Luca Mclean Measurements Intervals [place] Rate: 54 P: 42 CA: 256 QRS: 68 QRSD: 85 T: 64 QT: 458 QTc: 435 Interpretive Statements Sinus rhythm Prolonged CA interval Probable left atrial enlargement Borderline low voltage, extremity leads Compared to ECG 05/20/2018 07:36:19 First degree AV block now present Atrial flutter no longer present ST (T wave) deviation no longer present Electronically Signed On 07-04-2018 20:17:10 [employer] by Luca Mclean [email or web address] <ELECTRONICALLY SIGNED> By: Luca Mclean MD 07/04/182016 1226 1226 Luca Mclean MD /[facility]
[2018-07-02 10:49] VITALS: BP 129/78
== END | disposition home or self-care (01) ==
LOC: CATH 09:44
DX: I48.91 Unspecified atrial fibrillation (principal); I48.92 Unspecified atrial flutter; I10 Essential (primary) hypertension; E78.5 Hyperlipidemia, unspecified; J45.909 Unspecified asthma, uncomplicated; M10.9 Gout, unspecified; Z98.41 Cataract extraction status, right eye; Z98.42 Cataract extraction status, left eye; Z98.890 Other specified postprocedural states; Z87.891 Personal history of nicotine dependence; Z88.8 Allergy status to other drugs, medicaments and biological substances; Z79.899 Other long term (current) drug therapy

== ENCOUNTER → 2019-05-27 | Outpatient (CLI) | payer OTHER, MEDICARE | LOC: ULTRA 10:40 | DX: E03.9 Hypothyroidism, unspecified (principal) ==

== ENCOUNTER → 2020-02-03 | Outpatient (CLI) | payer OTHER, MEDICARE | LOC: RAD 11:19 | PROVIDERS: ATTEND Internal Medicine | DX: R05 Cough (principal) ==

== ENCOUNTER → 2020-02-10 | Outpatient (CLI) | payer OTHER, MEDICARE | LOC: SPEECH 07:30 → RAD 07:30 | PROVIDERS: ATTEND Internal Medicine | DX: R05 Cough (principal) ==

== ENCOUNTER → 2020-02-24 | Outpatient (CLI) | payer OTHER, MEDICARE | LOC: RAD 07:22 | PROVIDERS: ATTEND Internal Medicine | DX: K21.9 Gastro-esophageal reflux disease without esophagitis (principal); R05 Cough ==

== ENCOUNTER → 2020-03-02 | Outpatient (CLI) | payer OTHER, MEDICARE | LOC: SJCVC 09:56 | PROVIDERS: ATTEND Internal Medicine | DX: I44.0 Atrioventricular block, first degree (principal); I48.0 Paroxysmal atrial fibrillation; I10 Essential (primary) hypertension; E78.5 Hyperlipidemia, unspecified; K21.9 Gastro-esophageal reflux disease without esophagitis; Z79.899 Other long term (current) drug therapy; Z82.49 Family history of ischemic heart disease and other diseases of the circulatory system; Z87.891 Personal history of nicotine dependence ==

== ENCOUNTER → 2020-03-16 | Outpatient (CLI) | payer OTHER, MEDICARE | LOC: SJCVCIMAG 11:23 | PROVIDERS: ATTEND Internal Medicine | DX: I11.9 Hypertensive heart disease without heart failure (principal); I48.91 Unspecified atrial fibrillation ==

== ENCOUNTER → 2020-10-05 | Outpatient (CLI) | payer OTHER, MEDICARE | LOC: SJCVC 09:58 | PROVIDERS: ATTEND Internal Medicine | DX: I11.9 Hypertensive heart disease without heart failure (principal); I48.0 Paroxysmal atrial fibrillation; E78.5 Hyperlipidemia, unspecified; K21.9 Gastro-esophageal reflux disease without esophagitis; Z79.899 Other long term (current) drug therapy; Z87.891 Personal history of nicotine dependence; Z72.89 Other problems related to lifestyle; Z90.89 Acquired absence of other organs; Z98.890 Other specified postprocedural states ==

== ENCOUNTER → 2021-10-11 | Outpatient (CLI) | payer OTHER, MEDICARE | LOC: SJCVC 09:15 | PROVIDERS: ATTEND Internal Medicine | DX: R94.31 Abnormal electrocardiogram [ECG] [EKG] (principal); I48.0 Paroxysmal atrial fibrillation; E78.5 Hyperlipidemia, unspecified; I10 Essential (primary) hypertension; G47.33 Obstructive sleep apnea (adult) (pediatric); Z99.89 Dependence on other enabling machines and devices; Z79.899 Other long term (current) drug therapy; Z87.891 Personal history of nicotine dependence ==